=== PATIENT | female | born 1960 | race Caucasian/White ===

== ENCOUNTER → 2018-03-17 | Outpatient (CLI) | payer BC ==
[~2018-03-17] MED LIST: HYDROXYZINE PO; ZYRTEC PO
--- NOTE | 2018-03-17 15:00 | RADIOLOGY IMAGING REPORT ---
FACILITY: [facility] - [place] PATIENT NAME: HEIDI TOLEDO : [id number] MR: [id number] V: [id number] EXAM DATE: ORDERING PHYSICIAN: DALLIN RIVERA TECHNOLOGIST: Sherrie Reyez PROCEDURE:BILATERAL DIGITAL SCREENING MAMMOGRAM WITH CAD ASSISTED INTERPRETATION & 3D TOMOSYNTHESIS COMPARISON:Prior mammograms 03/16/17, 03/09/16, 03/08/15, 02/22/15, 01/16/14, 12/27/12. INDICATIONS:SCREENING FINDINGS: Moderately dense fibroglandular tissue is seen throughout the breasts. The parenchymal pattern has remained stable allowing for difference in mammographic technique & patient positioning. There is no evidence of malignant appearing mass, malignant appearing calcifications or other secondary sign of malignancy in either breast. DIAGNOSTIC CATEGORY 1--NEGATIVE. RECOMMENDATIONS: ROUTINE MAMMOGRAM AND CLINICAL EVALUATION. IMPRESSION: BIRADS 1: Negative. No significant abnormality is seen. Dictated by: Rosalva English M.D. on 03/17/2018 at 14:48 Transcribed by: REFUGIO on 03/17/2018 at 14:57 Approved by: Rosalva English M.D. on 03/17/2018 at 14:59 [facility]
== END ==
LOC: MAMO 02:19
PROVIDERS: ATTEND Obstetrics & Gynecology
DX: Z12.31 Encounter for screening mammogram for malignant neoplasm of breast (principal)
CPT/HCPCS: 77063; 77067

== ENCOUNTER → 2018-05-11 | Outpatient (CLI) | payer BC | LOC: RESP 04-25 00:04 | PROVIDERS: ATTEND Obstetrics & Gynecology | DX: G47.33 Obstructive sleep apnea (adult) (pediatric) (principal) ==

== ENCOUNTER 2018-06-29 21:12 | Emergency (ER) | payer BC ==
[2018-06-29] MEDS ORDERED: RANI-366 PO (21:46)
--- NOTE | 2018-06-29 22:04 | ER Report ---
History and Physical Time Seen By MD: 22:04 Hx. of Stated Complaint: abdominal pain/discomofrt/bloating that started around dinner time HPI/ROS CHIEF COMPLAINT: Abdominal pain HISTORY OF PRESENT ILLNESS: This is a 57-year-old female. 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 She had onset of abdominal pain. She described pain on the right side of abdomen, worsening in quality, associated with feeling of abdominal distension and bloating. No fever but did feel chilled. Mild nausea but no vomiting. No problems with bowel or bladder recently. Pain seems worse in the lower abdomen. Allergies: Uncoded Allergies: shellfish (Allergy, Unknown, 06/29/18) Home Meds Reported Medications Ranitidine Hcl (ZANTAC) 150 Mg Tablet, 300 MG PO BID, TAB 06/29/18 Discontinued Reported Medications [Hydroxyzine] No Conflict Check, PO PRN, ITCH, 0 Refills 09/12/09 [Zyrtec] No Conflict Check, PO PRN, 0 Refills 09/12/09 Reviewed Nurses Notes: Yes Hx Substance Use Disorder: No Hx Alcohol Use: Yes (moderate) Constitutional Vital Sign - Last 24 Hours 06/29/18 06/29/18 06/29/18 06/29/18 21:40 21:42 21:57 22:12 Temp 98.2 Pulse 60 ? Resp 18 B/P (MAP) 167/91 Pulse Ox 98 O2 Delivery Room Air 06/29/18 06/29/18 06/29/18 06/29/18 22:17 22:27 22:30 22:42 Pulse 67 66 B/P (MAP) 139/87 (104) 138/84 (102) Pulse Ox 96 97 06/29/18 06/29/18 06/29/18 06/29/18 22:57 23:02 23:05 23:17 Pulse ? B/P (MAP) 149/77 (101) 06/29/18 06/29/18 06/29/18 06/30/18 23:30 23:32 23:47 00:00 Pulse 77 72 B/P (MAP) 141/78 (99) 136/83 (100) Pulse Ox 95 93 06/30/18 06/30/18 00:02 00:18 Pulse ? Pulse Ox 99 Physical Exam General Appearance: The patient is alert. No acute distress. Eyes: Pupils are equal, round. No pallor, injection or icterus. ENT: Mucous membranes are moist. Neck: Supple and non tender. No lymphadenopathy. Respiratory: Lungs are clear to auscultation. Cardiovascular: Regular rate and rhythm. No murmurs, gallops or rubs. Normal capillary refill. Gastrointestinal: Abdomen is soft, tender on the right side, worse in the lower right. Nondistended. Guarding, but without rebound. Normal active bowel sounds. No costovertebral angle tenderness with percussion. Neurological: Alert and oriented x3. No focal neurologic deficits Skin: Warm and dry. Musculoskeletal: Extremities are nontender. No tenderness in palpation of the cervical, thoracic and lumbar spine. DIFFERENTIAL DIAGNOSIS: After history and physical exam, differential diagnosis was considered for abdominal pain including but not limited to appendicitis, cholecystitis, gastritis and urinary tract infection. Medical Decision Making Data Points Result Diagram: 06/29/18 2215 06/29/18 2215 Laboratory Hematology Test 06/29/18 21:40 06/29/18 22:15 Urine Color Yellow Urine Clarity Clear Urine pH 5.0 pH (4.8-9.5) Urine Specific [place] 1.020 Urine Protein Negative mg/dL (NEGATIVE) Urine Glucose (UA) Negative mg/dL (NEGATIVE) Urine Ketones Trace mg/dL (NEGATIVE) Urine Blood Negative (NEGATIVE) Urine Nitrite Negative (NEGATIVE) Urine Bilirubin Negative (NEGATIVE) Urine Urobilinogen Negative mg/dL (0.2-1.9) Urine Leukocyte Esterase Negative (NEGATIVE) Urine RBC <1 /HPF (0-2/HPF) Urine WBC <1 /HPF (0-5/HPF) Urine Squamous Epithelial Cells Moderate /LPF (</=FEW) Urine Bacteria Negative /HPF (NONE-FEW) Urine Mucus None /HPF (NONE-FEW) Red Blood Count 4.03 M/uL (4.17-5.56) Mean Corpuscular Volume 97.5 fL (80.0-96.0) Mean Corpuscular Hemoglobin 34.2 pg (26.0-33.0) Mean Corpuscular Hemoglobin Concent 35.1 g/dL (32.0-36.0) Red Cell Distribution Width 12.9 % (11.5-14.5) Mean Platelet Volume 8.8 fL (7.2-11.1) Neutrophils (%) (Auto) 73.0 % (39.4-72.5) Lymphocytes (%) (Auto) 15.4 % (17.6-49.6) Monocytes (%) (Auto) 9.3 % (4.1-12.4) Eosinophils (%) (Auto) 1.2 % (0.4-6.7) Basophils (%) (Auto) 1.1 % (0.3-1.4) Nucleated RBC Relative Count (auto) 0.0 /100WBC Neutrophils # (Auto) 4.7 K/uL (2.0-7.4) Lymphocytes # (Auto) 1.0 K/uL (1.3-3.6) Monocytes # (Auto) 0.6 K/uL (0.3-1.0) Eosinophils # (Auto) 0.1 K/uL (0.0-0.5) Basophils # (Auto) 0.1 K/uL (0.0-0.1) Nucleated RBC Absolute Count (auto) 0.00 K/uL Sodium Level 138 mmol/L (137-145) Potassium Level 3.8 mmol/L (3.5-5.0) Chloride Level 105 mmol/L (98-107) Carbon Dioxide Level 22 mmol/L (22-31) Blood Urea Nitrogen 15 mg/dl (7-18) Creatinine 0.80 mg/dl (0.52-1.04) Glomerular Filtration Rate Calc > 60.0 Random Glucose 109 mg/dl (75-110) Calcium Level 9.4 mg/dl (8.4-10.2) Total Bilirubin 0.4 mg/dl (0.2-1.3) Aspartate Amino Transf (AST/SGOT) 33 U/L (0-35) Alanine Aminotransferase (ALT/SGPT) 28 U/L (0-56) Alkaline Phosphatase 63 U/L (0-126) Total Protein 7.4 g/dl (6.3-8.2) Albumin 4.3 g/dl (3.5-5.0) Amylase Level 88 U/L (0-110) Lipase 120 U/L (23-300) Human Chorionic Gonadotropin, Qual Negative (NEGATIVE) Chemistry Test 06/29/18 21:40 06/29/18 22:15 Urine Color Yellow Urine Clarity Clear Urine pH 5.0 pH (4.8-9.5) Urine Specific [place] 1.020 Urine Protein Negative mg/dL (NEGATIVE) Urine Glucose (UA) Negative mg/dL (NEGATIVE) Urine Ketones Trace mg/dL (NEGATIVE) Urine Blood Negative (NEGATIVE) Urine Nitrite Negative (NEGATIVE) Urine Bilirubin Negative (NEGATIVE) Urine Urobilinogen Negative mg/dL (0.2-1.9) Urine Leukocyte Esterase Negative (NEGATIVE) Urine RBC <1 /HPF (0-2/HPF) Urine WBC <1 /HPF (0-5/HPF) Urine Squamous Epithelial Cells Moderate /LPF (</=FEW) Urine Bacteria Negative /HPF (NONE-FEW) Urine Mucus None /HPF (NONE-FEW) White Blood Count 6.4 k/uL (4.5-11.0) Red Blood Count 4.03 M/uL (4.17-5.56) Hemoglobin 13.8 g/dL (12.0-16.0) Hematocrit 39.3 % (34.0-47.0) Mean Corpuscular Volume 97.5 fL (80.0-96.0) Mean Corpuscular Hemoglobin 34.2 pg (26.0-33.0) Mean Corpuscular Hemoglobin Concent 35.1 g/dL (32.0-36.0) Red Cell Distribution Width 12.9 % (11.5-14.5) Platelet Count 201 K/uL (150-450) Mean Platelet Volume 8.8 fL (7.2-11.1) Neutrophils (%) (Auto) 73.0 % (39.4-72.5) Lymphocytes (%) (Auto) 15.4 % (17.6-49.6) Monocytes (%) (Auto) 9.3 % (4.1-12.4) Eosinophils (%) (Auto) 1.2 % (0.4-6.7) Basophils (%) (Auto) 1.1 % (0.3-1.4) Nucleated RBC Relative Count (auto) 0.0 /100WBC Neutrophils # (Auto) 4.7 K/uL (2.0-7.4) Lymphocytes # (Auto) 1.0 K/uL (1.3-3.6) Monocytes # (Auto) 0.6 K/uL (0.3-1.0) Eosinophils # (Auto) 0.1 K/uL (0.0-0.5) Basophils # (Auto) 0.1 K/uL (0.0-0.1) Nucleated RBC Absolute Count (auto) 0.00 K/uL Glomerular Filtration Rate Calc > 60.0 Calcium Level 9.4 mg/dl (8.4-10.2) Total Bilirubin 0.4 mg/dl (0.2-1.3) Aspartate Amino Transf (AST/SGOT) 33 U/L (0-35) Alanine Aminotransferase (ALT/SGPT) 28 U/L (0-56) Alkaline Phosphatase 63 U/L (0-126) Total Protein 7.4 g/dl (6.3-8.2) Albumin 4.3 g/dl (3.5-5.0) Amylase Level 88 U/L (0-110) Lipase 120 U/L (23-300) Human Chorionic Gonadotropin, Qual Negative (NEGATIVE) Urinalysis Test 06/29/18 21:40 Urine Color Yellow Urine Clarity Clear Urine pH 5.0 pH (4.8-9.5) Urine Specific [place] 1.020 Urine Protein Negative mg/dL (NEGATIVE) Urine Glucose (UA) Negative mg/dL (NEGATIVE) Urine Ketones Trace mg/dL (NEGATIVE) Urine Blood Negative (NEGATIVE) Urine Nitrite Negative (NEGATIVE) Urine Bilirubin Negative (NEGATIVE) Urine Urobilinogen Negative mg/dL (0.2-1.9) Urine Leukocyte Esterase Negative (NEGATIVE) Urine RBC <1 /HPF (0-2/HPF) Urine WBC <1 /HPF (0-5/HPF) Urine Squamous Epithelial Cells Moderate /LPF (</=FEW) Urine Bacteria Negative /HPF (NONE-FEW) Urine Mucus None /HPF (NONE-FEW) EKG/Imaging Imaging COMPUTED TOMOGRAPHY ABDOMEN AND PELVIS WITH INTRAVENOUS CONTRAST DATE OF EXAM: 06/29/2018 10:11 PM INDICATION: Right abdominal pain. COMPARISON: None. TECHNIQUE: Contrast enhanced abdomen and pelvis CT performed during the injection of 75 ml of Isovue 370. Sagittal and coronal reconstructions were performed. One of the following dose optimization techniques was utilized in the performance of this exam: Automated exposure control; adjustment of the mA and/or kV according to the patient's size; or use of an iterative reconstruction technique. Specific details can be referenced in the facility's radiology CT exam operational policy. FINDINGS: Lung bases: Minimal atelectasis. Liver and hepatic vasculature: No acute abnormality or suspicious lesion. Gallbladder and bile ducts: Normal. Spleen: Normal. Pancreas: Normal. Adrenals: Normal. Kidneys, ureters and bladder: Normal. Retroperitoneum and aorta: Nonaneurysmal aorta with minimal atherosclerosis. No adenopathy. GI tract, mesentery and peritoneum: There is a large amount of stool in the colon. No evidence of obstruction. No pneumatosis, pneumoperitoneum or free fluid. Normal appendix. Uterus and adnexa: Normal. Bones and soft tissues: Ovoid fluid density superficially along the left vulva measures 1.9 x 0.7 cm on image 145 series 2. No definite associated inflammation. Small fat-containing right inguinal hernia. No suspicious bone lesion. IMPRESSION: 1. Large volume of stool in the colon suspicious for constipation. 2. 1.9 cm and cystic lesion along the left vulva with no definite evidence of acute inflammation, of doubtful significance and possibly representing a sebaceous cyst. Correlate with exam if indicated. Report Dictated By: Woody Nieto MD at 06/29/2018 11:23 PM ED Course/Re-evaluation Clinical Indication for ER IV: Hydration, IV Access ED Course Initial evaluation suggests possible appendicitis, also discussed the possibility of gallbladder related pain. We went ahead and obtain labs as well as a CT scan. CT scan was negative for acute abnormality and did show some constipation. I reviewed this with the patient as well as her labs. Did offer to do an ultrasound of the gallbladder however the patient would like to watch things for now and see things improve. Decision to Disposition Date: Jun 30, 2018 Decision to Disposition Time: 00:07 Depart Departure Latest Vital Signs Vital Signs Date Time Temp Pulse Resp B/P (MAP) Pulse Ox O2 Delivery O2 Flow Rate FiO2 06/30/18 00:18 ??? 06/30/18 00:02 99 06/30/18 00:00 136/83 (100) 06/29/18 21:40 98.2 18 Room Air Impression: Primary Impression: Abdominal pain Additional Impression: Constipation Condition: Improved Disposition: HOME OR SELF-CARE Referrals: DALLIN RIVERA MD (PCP) Patient Instructions: Acute Abdominal Pain (ED), Constipation (ED) Additional Instructions: We did not find an acute cause for your pain tonight. Your appendix was normal and no other problems noted on CT scan other than some constipation. Take an over the counter laxative as needed such as Milk of Magnesia, Dulcolax or Ex-lax. If still having problems you can return and we can re-evaluation or do an ultrasound as we discussed. Problem Qualifiers Primary Impression: Abdominal pain Abdominal location: right lower quadrant Qualified Codes: R10.31 - Right lower quadrant pain Additional Impression: Constipation Constipation type: unspecified constipation type Qualified Codes: K59.00 - Constipation, unspecified KETAN BONILLA MD Jun 29, 2018 22:04
[2018-06-29] MEDS ORDERED: NS(*) 0.9% 1000 ML BAG 1,000 ML IV ONE (22:11)
[2018-06-29] MEDS ORDERED: IOPAMIDOL 76% 75 ML INFUS BTL 75 ML ONE (22:24)
[2018-06-29 22:30] LABS: PLATELET COUNT, AUTOMATED 201 K/uL (150-450)
[2018-06-29] MEDS ORDERED: diphenhydrAMINE 50 MG/ML VIAL IVP ONE (22:45)
--- NOTE | 2018-06-29 23:35 | RADIOLOGY IMAGING REPORT ---
FACILITY: [facility] - [place] PATIENT NAME: Yanet Patel : 1960 MR: [id number] V: [id number] EXAM DATE: ORDERING PHYSICIAN: KETAN BONILLA TECHNOLOGIST: Location: [facility] - [place] Patient: Yanet Patel : 1960 Visit/Account:[id number] Date of Sevice: 06/29/2018 COMPUTED TOMOGRAPHY ABDOMEN AND PELVIS WITH INTRAVENOUS CONTRAST DATE OF EXAM: 06/29/2018 10:11 PM INDICATION: Right abdominal pain. COMPARISON: None. TECHNIQUE: Contrast enhanced abdomen and pelvis CT performed during the injection of 75 ml of Isovue 370. Sagittal and coronal reconstructions were performed. One of the following dose optimization te chniques was utilized in the performance of this exam: Automated exposure control; adjustment of the mA and/or kV according to the patient's size; or use of an iterative reconstruction technique. Spec [facility] details can be referenced in the facility's radiology CT exam operational policy. FINDINGS: Lung bases: Minimal atelectasis. Liver and hepatic vasculature: No acute abnormality or suspicious lesion. Gallbladder and bile ducts: Normal. Spleen: Normal. Pancreas: Normal. Adrenals: Normal. Kidneys, ureters and bladder: Normal. Retroperitoneum and aorta: Nonaneurysmal aorta with minimal atherosclerosis. No adenopathy. GI tract, mesentery and peritoneum: There is a large amount of stool in the colon. No evidence of o bstruction. No pneumatosis, pneumoperitoneum or free fluid. Normal appendix. Uterus and adnexa: Normal. Bones and soft tissues: Ovoid fluid density superficially along the left vulva measures 1.9 x 0.7 cm on image 145 series 2. No definite associated inflammation. Small fat-containing right inguinal he rnia. No suspicious bone lesion. IMPRESSION: 1. Large volume of stool in the colon suspicious for constipation. 2. 1.9 cm and cystic lesion along the left vulva with no definite evidence of acute inflammation, of doubtful significance and possibly representing a sebaceous cyst. Correlate with exam if indicated. Report Dictated By: Woody Nieto MD at 06/29/2018 11:23 PM Report E-Signed By: Woody Nieto MD at 06/29/2018 11:30 PM WSN:[id number]
[2018-06-30] VITALS: BP 136/83
== END 2018-06-30 00:15 | disposition home or self-care (01) ==
LOC: ER 22:05
DX: R10.31 Right lower quadrant pain (principal); K59.00 Constipation, unspecified
CPT/HCPCS: 74177; 81001; 82150; 83690; 84703; 85025; 96361; 96374; 99284; J1200; J7030; Q9967; 82040; 82247; 82310; 82374; 82435; 82565; 82947; 84075; 84132; 84155; 84295; 84450; 84460; 84520

== ENCOUNTER → 2019-02-06 | Outpatient (CLI) | payer BC ==
[~2019-02-06] MED LIST changes: +RANI-54 PO
== END ==
LOC: RESP 07:52
PROVIDERS: ATTEND Family Medicine
DX: Z02.9 Encounter for administrative examinations, unspecified (principal)

== ENCOUNTER 2019-03-02 00:13 | Day surgery (SDC) | payer BC ==
[~2019-03-02] VITALS: Ht 162.6 cm; Wt 58.5 kg
[~2019-03-02 00:13] MED LIST changes: +NINT150C PO
[2019-03-02] MEDS ORDERED: LIDOCAINE/SOD BICARB 8.4% SYR ID ONE (07:20)
[2019-03-02] MEDS ORDERED: NORMOSOL R SOLN(*) 1000 ML BAG 1,000 ML IV PRN (07:20)
[2019-03-02 07:27] VITALS: BP 135/80
[2019-03-02 09:20] VITALS: BP 131/77
[2019-03-02 09:45] VITALS: BP 128/81
[2019-03-02 09:58] VITALS: BP 125/82
[2019-03-02 10:00] VITALS: BP 96/85
[2019-03-02] MEDS ORDERED: PROPOFOL EMUL(*) 10MG/ML 20 ML 40 ML ONE (13:32)
== END 2019-03-02 10:10 | disposition home or self-care (01) ==
LOC: OR 00:13
PROVIDERS: ATTEND Family Medicine
DX: Z12.11 Encounter for screening for malignant neoplasm of colon (principal)
CPT/HCPCS: 00812; 45378; J2704